=== PATIENT | male | born 1975 | race Caucasian/White ===

== ENCOUNTER 2018-01-28 17:56 | Inpatient (IN) | payer OTHER ==
[2018-01-28] MEDS: morphine 4 MG/ML VIAL IV (19:10)
[2018-01-28] MEDS: SOD CHLORIDE 0.9% 1,000 ML IV (19:10)
[2018-01-28 19:20] LABS: ADD MAN DIFF? NO
[2018-01-28 19:26] LABS: BASOPHIL # 0.1 10^3/ul (0.0-0.1); BASOPHILS % 1.2 % (0.0-2.0); EOSINOPHILS # 0.3 10^3/ul (0.0-0.5); EOSINOPHILS % 4.3 % (0.0-7.0); HEMATOCRIT 44.7 % (42.0-52.0); HEMOGLOBIN 15.6 g/dl (14.0-18.0); LYMPHOCYTES # 0.8 10^3/ul (0.8-2.9); LYMPHOCYTES % 12.4 % (15.0-51.0); MEAN CORPUSCULAR HEMOGLOBIN 38.5 pg (29.0-33.0); MEAN CORPUSCULAR HGB CONC 34.9 g/dl (32.0-37.0); MEAN CORPUSCULAR VOLUME 110.4 fl (82.0-101.0); MEAN PLATELET VOLUME 10.1 fl (7.4-10.4); MONOCYTE # 0.7 10^3/ul (0.3-0.9); MONOCYTES % 10.7 % (0.0-11.0); NEUTROPHIL # 4.5 10^3/ul (1.6-7.5); PLATELET COUNT 352 10^3/UL (140-415); RED BLOOD COUNT 4.05 10^6/ul (4.70-6.10); RED CELL DISTRIBUTION WIDTH 13.8 % (11.5-14.5)
[2018-01-28 19:26] LABS: WHITE BLOOD COUNT 6.5 10^3/ul (4.8-10.8)
[2018-01-28 19:41] LABS: INR 0.92; PROTIME 12.4 Sec (11.9-14.9)
[2018-01-28 19:42] LABS: PARTIAL THROMBOPLASTIN TIME 34.1 Sec (25.0-35.0)
[2018-01-28 19:46] LABS: ANION GAP 17 (8-16); BLOOD UREA NITROGEN 5 mg/dl (7-20); CALCIUM 9.1 mg/dl (8.4-10.2); CARBON DIOXIDE 24 mmol/L (21-31); CHLORIDE 101 mmol/L (97-110); CREATININE 0.68 mg/dl (0.61-1.24); GLUCOSE 100 mg/dl (70-220); POTASSIUM 3.9 mmol/L (3.5-5.1); SODIUM 138 mmol/L (135-144)
[2018-01-28] MEDS: HYDROmorphONE 2 MG/ML SYG IV (19:57)
[2018-01-28] MEDS ORDERED: ONDANSETRON 4 MG INJ IV (20:30)
[2018-01-28] MEDS ORDERED: ACETAMINOPHEN 325 MG TAB PO (20:30)
[2018-01-28] MEDS ORDERED: BISACODYL (EC) 5 MG TAB PO (20:30)
[2018-01-28] MEDS ORDERED: DOCUSATE SODIUM 100 MG CAP PO (20:30)
[2018-01-28] MEDS ORDERED: NACL 0.9% 3 ML SYG IV (20:30)
[2018-01-28] MEDS: METOPROLOL 25 MG TAB PO (21:21)
[2018-01-28] MEDS: AMITRIPTYLINE 50 MG TAB PO (21:48)
[2018-01-28] MEDS: morphine 2 MG INJ IV (22:38)
[2018-01-29] MEDS: ENOXAPARIN 100 MG/ML SYG SC (03:40)
[2018-01-29 05:47] LABS: ADD MAN DIFF? NO
[2018-01-29 05:56] LABS: WHITE BLOOD COUNT 6.6 10^3/ul (4.8-10.8)
[2018-01-29 05:56] LABS: BASOPHIL # 0.1 10^3/ul (0.0-0.1); BASOPHILS % 0.8 % (0.0-2.0); EOSINOPHILS # 0.3 10^3/ul (0.0-0.5); EOSINOPHILS % 3.8 % (0.0-7.0); HEMATOCRIT 42.7 % (42.0-52.0); HEMOGLOBIN 14.6 g/dl (14.0-18.0); LYMPHOCYTES # 0.7 10^3/ul (0.8-2.9); MEAN CORPUSCULAR HEMOGLOBIN 37.8 pg (29.0-33.0); MEAN CORPUSCULAR HGB CONC 34.2 g/dl (32.0-37.0); MEAN CORPUSCULAR VOLUME 110.6 fl (82.0-101.0); MEAN PLATELET VOLUME 10.5 fl (7.4-10.4); MONOCYTE # 0.8 10^3/ul (0.3-0.9); NEUTROPHIL # 4.8 10^3/ul (1.6-7.5); NEUTROPHILS % 72.2 % (39.0-77.0); PLATELET COUNT 297 10^3/UL (140-415); RED BLOOD COUNT 3.86 10^6/ul (4.70-6.10)
[2018-01-29 06:26] LABS: ALANINE AMINOTRANSFERASE 157 IU/L (13-69); ALBUMIN 3.3 g/dl (3.3-4.9); ALBUMIN/GLOBULIN RATIO 0.94; ALKALINE PHOSPHATASE 193 IU/L (42-121); ANION GAP 12 (8-16); ASPARTATE AMINO TRANSFERASE 165 IU/L (15-46); BILIRUBIN,INDIRECT 1.3 mg/dl (0-1.1); BILIRUBIN,TOTAL 1.3 mg/dl (0.2-1.3); BLOOD UREA NITROGEN 4 mg/dl (7-20); CALCIUM 8.7 mg/dl (8.4-10.2); CARBON DIOXIDE 28 mmol/L (21-31); CHLORIDE 103 mmol/L (97-110); CHOL/HDL RATIO 2.9 RATIO; CHOLESTEROL 227 mg/dl (100-200); CREATININE 0.77 mg/dl (0.61-1.24); GLUCOSE 97 mg/dl (70-220); HDL CHOLESTEROL 76 mg/dl (27-67); LDL CHOLESTEROL,CALCULATED 134 mg/dl; MAGNESIUM 1.5 mg/dl (1.7-2.5); POTASSIUM 4.5 mmol/L (3.5-5.1); SODIUM 138 mmol/L (135-144); TOTAL PROTEIN 6.8 g/dl (6.1-8.1); TRIGLYCERIDES 84 mg/dl (0-149)
[2018-01-29] MEDS: morphine 2 MG INJ IV ×4 (07:29→23:48)
[2018-01-29 07:47] LABS: FOLATE 2.8 ng/ml (2.8-20.0)
[2018-01-29 08:07] LABS: HEMOGLOBIN A1C 5.7 % (0-5.9)
[2018-01-29] MEDS: METOPROLOL 25 MG TAB PO ×2 (08:35→20:37)
[2018-01-29] MEDS: SOD CHLORIDE 0.9% 1,000 ML IV ×2 (09:11)
[2018-01-29] MEDS: MAGNESIUM SULFATE 1 GM/D5W 100 ML IVPB (15:00)
[2018-01-29] MEDS ORDERED: HEPARIN 1000 UNITS/NS (A-LINE) 1,000 ML (15:43)
[2018-01-29] MEDS ORDERED: IODIXANOL LOCM 100 ML BTL ×3 (15:43→17:36)
[2018-01-29] MEDS ORDERED: LIDOCAINE 1% (MDV) 20 ML INJ ×2 (15:43→17:37)
[2018-01-29] MEDS ORDERED: MIDAZOLAM 1 MG/ML 2 ML INJ ×3 (15:45→17:40)
[2018-01-29] MEDS ORDERED: FENTAnyl 50 MCG/ML VIAL ×3 (15:45→17:40)
[2018-01-29] MEDS: ALTEPLASE 10 MG in NS 100 ML CATHETER (16:30)
[2018-01-29] MEDS ORDERED: HEPARIN 1000 UNITS/ML 10 ML INJ (16:37)
[2018-01-29] MEDS ORDERED: HEPARIN 1000 UNITS/ML 10 ML INJ IV ×2 (19:00→20:00)
[2018-01-29] MEDS ORDERED: 1/2 NS + KCL 20 MEQ 1,000 ML IV (19:00)
[2018-01-29] MEDS: HYDROmorphONE 0.5 MG/0.5 ML SYG IV (20:15)
[2018-01-29 20:25] LABS: ADD MAN DIFF? NO
[2018-01-29 20:28] LABS: ABNORMAL IP MESSAGE 1; BASOPHIL # 0.1 10^3/ul (0.0-0.1); BASOPHILS % 0.7 % (0.0-2.0); EOSINOPHILS # 0.2 10^3/ul (0.0-0.5); EOSINOPHILS % 2.1 % (0.0-7.0); HEMATOCRIT 44.3 % (42.0-52.0); LYMPHOCYTES # 0.6 10^3/ul (0.8-2.9); LYMPHOCYTES % 7.9 % (15.0-51.0); MEAN CORPUSCULAR HEMOGLOBIN 37.8 pg (29.0-33.0); MEAN CORPUSCULAR HGB CONC 33.9 g/dl (32.0-37.0); MEAN CORPUSCULAR VOLUME 111.6 fl (82.0-101.0); MEAN PLATELET VOLUME 10.1 fl (7.4-10.4); MONOCYTE # 0.7 10^3/ul (0.3-0.9); MONOCYTES % 9.1 % (0.0-11.0); NEUTROPHIL # 5.9 10^3/ul (1.6-7.5); NEUTROPHILS % 79.1 % (39.0-77.0); PLATELET COUNT 255 10^3/UL (140-415); POSITIVE DIFF @See below; RED BLOOD COUNT 3.97 10^6/ul (4.70-6.10)
[2018-01-29 20:28] LABS: WHITE BLOOD COUNT 7.5 10^3/ul (4.8-10.8)
[2018-01-29] MEDS: HEPARIN 25000 UNITS/D5W 250 ML (VPH) IV (20:34)
[2018-01-29 20:46] LABS: ANION GAP 11 (8-16); BLOOD UREA NITROGEN 5 mg/dl (7-20); CALCIUM 8.9 mg/dl (8.4-10.2); CARBON DIOXIDE 27 mmol/L (21-31); CHLORIDE 102 mmol/L (97-110); CREATININE 0.73 mg/dl (0.61-1.24); GLUCOSE 98 mg/dl (70-220); SODIUM 136 mmol/L (135-144)
[2018-01-29] MEDS: AMITRIPTYLINE 50 MG TAB PO (21:41)
[2018-01-29] MEDS: hydrALAzine 20 MG INJ IV (22:09)
[2018-01-29] MEDS: 1/2 NS + KCL 20 MEQ 1,000 ML IV (22:15)
[2018-01-30] MEDS: HYDROmorphONE 0.5 MG/0.5 ML SYG IV ×6 (00:15→23:49)
[2018-01-30] MEDS: morphine 2 MG INJ IV ×5 (03:46→21:32)
[2018-01-30 04:43] LABS: ADD MAN DIFF? NO
[2018-01-30 05:05] LABS: PARTIAL THROMBOPLASTIN TIME 53.2 Sec (25.0-35.0)
[2018-01-30 05:30] LABS: ALANINE AMINOTRANSFERASE 135 IU/L (13-69); ALBUMIN 3.1 g/dl (3.3-4.9); ALBUMIN/GLOBULIN RATIO 0.96; ALKALINE PHOSPHATASE 174 IU/L (42-121); ANION GAP 11 (8-16); ASPARTATE AMINO TRANSFERASE 145 IU/L (15-46); BILIRUBIN,INDIRECT 2.1 mg/dl (0-1.1); BILIRUBIN,TOTAL 2.1 mg/dl (0.2-1.3); BLOOD UREA NITROGEN 7 mg/dl (7-20); CARBON DIOXIDE 25 mmol/L (21-31); CHLORIDE 100 mmol/L (97-110); CREATININE 0.72 mg/dl (0.61-1.24); GLUCOSE 108 mg/dl (70-220); MAGNESIUM 1.3 mg/dl (1.7-2.5); POTASSIUM 4.2 mmol/L (3.5-5.1); SODIUM 132 mmol/L (135-144); TOTAL PROTEIN 6.3 g/dl (6.1-8.1)
[2018-01-30] MEDS: HEPARIN 1000 UNITS/ML 10 ML INJ IV (05:33)
[2018-01-30 05:56] LABS: HEPATITIS B SURFACE ANTIGEN NEGATIVE (NEGATIVE)
[2018-01-30] MEDS: 1/2 NS + KCL 20 MEQ 1,000 ML IV ×2 (06:07→16:39)
[2018-01-30 06:09] LABS: ABNORMAL IP MESSAGE 1; BASOPHIL # 0.1 10^3/ul (0.0-0.1); BASOPHILS % 0.6 % (0.0-2.0); EOSINOPHILS # 0.1 10^3/ul (0.0-0.5); EOSINOPHILS % 1.5 % (0.0-7.0); HEMATOCRIT 40.6 % (42.0-52.0); HEMOGLOBIN 14.1 g/dl (14.0-18.0); LYMPHOCYTES # 0.6 10^3/ul (0.8-2.9); LYMPHOCYTES % 6.2 % (15.0-51.0); MEAN CORPUSCULAR HEMOGLOBIN 38.7 pg (29.0-33.0); MEAN CORPUSCULAR HGB CONC 34.7 g/dl (32.0-37.0); MEAN CORPUSCULAR VOLUME 111.5 fl (82.0-101.0); MEAN PLATELET VOLUME 10.6 fl (7.4-10.4); MONOCYTE # 0.8 10^3/ul (0.3-0.9); MONOCYTES % 8.6 % (0.0-11.0); NEUTROPHIL # 7.8 10^3/ul (1.6-7.5); NEUTROPHILS % 81.7 % (39.0-77.0); PLATELET COUNT 240 10^3/UL (140-415); POSITIVE DIFF @See below; RED BLOOD COUNT 3.64 10^6/ul (4.70-6.10)
[2018-01-30 06:09] LABS: WHITE BLOOD COUNT 9.6 10^3/ul (4.8-10.8)
[2018-01-30 06:14] LABS: HEPATITIS B CORE ANTIBODY NEGATIVE (NEGATIVE); HEPATITIS C VIRAL ANTIBODY NEGATIVE (NEGATIVE)
[2018-01-30 07:02] LABS: HEPATITIS B SURFACE ANTIBODY NEGATIVE (NEGATIVE)
[2018-01-30] MEDS: METOPROLOL 25 MG TAB PO ×2 (08:08→21:24)
[2018-01-30] MEDS: HEPARIN 25000 UNITS/D5W 250 ML (VPH) IV ×2 (08:38→21:19)
[2018-01-30] MEDS: CYANOCOBALAMIN 500 MCG TAB PO (09:11)
[2018-01-30] MEDS: FOLIC ACID 1 MG TAB PO (09:11)
[2018-01-30] MEDS: CYANOCOBALAMIN 1000 MCG INJ IM (09:13)
[2018-01-30] MEDS: MAGNESIUM SULFATE 4 GM/100 ML 100 ML IVPB (10:04)
[2018-01-30 12:58] LABS: PARTIAL THROMBOPLASTIN TIME 117.3 Sec (25.0-35.0)
[2018-01-30] MEDS: hydrALAzine 20 MG INJ IV (19:56)
[2018-01-30] MEDS: AMITRIPTYLINE 50 MG TAB PO (21:25)
[2018-01-31] MEDS: morphine 2 MG INJ IV ×4 (01:27→18:03)
[2018-01-31] MEDS: 1/2 NS + KCL 20 MEQ 1,000 ML IV ×3 (01:32→23:17)
[2018-01-31] MEDS: HYDROmorphONE 0.5 MG/0.5 ML SYG IV ×6 (03:50→23:33)
[2018-01-31 04:17] LABS: ADD MAN DIFF? NO
[2018-01-31 04:19] LABS: WHITE BLOOD COUNT 7.7 10^3/ul (4.8-10.8)
[2018-01-31 04:19] LABS: BASOPHIL # 0.1 10^3/ul (0.0-0.1); BASOPHILS % 0.9 % (0.0-2.0); EOSINOPHILS # 0.3 10^3/ul (0.0-0.5); EOSINOPHILS % 3.4 % (0.0-7.0); HEMATOCRIT 40.6 % (42.0-52.0); LYMPHOCYTES # 0.7 10^3/ul (0.8-2.9); LYMPHOCYTES % 8.5 % (15.0-51.0); MEAN CORPUSCULAR HGB CONC 34.5 g/dl (32.0-37.0); MEAN CORPUSCULAR VOLUME 110.3 fl (82.0-101.0); MEAN PLATELET VOLUME 10.3 fl (7.4-10.4); MONOCYTE # 0.6 10^3/ul (0.3-0.9); MONOCYTES % 7.8 % (0.0-11.0); NEUTROPHIL # 5.9 10^3/ul (1.6-7.5); NEUTROPHILS % 77.1 % (39.0-77.0); PLATELET COUNT 224 10^3/UL (140-415); RED BLOOD COUNT 3.68 10^6/ul (4.70-6.10)
[2018-01-31 04:47] LABS: ALANINE AMINOTRANSFERASE 211 IU/L (13-69); ALBUMIN 3.5 g/dl (3.3-4.9); ALKALINE PHOSPHATASE 211 IU/L (42-121); ANION GAP 12 (8-16); ASPARTATE AMINO TRANSFERASE 266 IU/L (15-46); BILIRUBIN,INDIRECT 1.5 mg/dl (0-1.1); BILIRUBIN,TOTAL 1.5 mg/dl (0.2-1.3); BLOOD UREA NITROGEN 7 mg/dl (7-20); CALCIUM 8.9 mg/dl (8.4-10.2); CARBON DIOXIDE 25 mmol/L (21-31); CHLORIDE 103 mmol/L (97-110); CREATININE 0.76 mg/dl (0.61-1.24); GLUCOSE 101 mg/dl (70-220); POTASSIUM 4.4 mmol/L (3.5-5.1); SODIUM 136 mmol/L (135-144)
[2018-01-31] MEDS: CYANOCOBALAMIN 500 MCG TAB PO (09:29)
[2018-01-31] MEDS: METOPROLOL 25 MG TAB PO ×2 (09:29→21:15)
[2018-01-31] MEDS: FOLIC ACID 1 MG TAB PO (09:29)
[2018-01-31] MEDS: AMITRIPTYLINE 50 MG TAB PO (21:10)
[2018-01-31] MEDS: HEPARIN 25000 UNITS/D5W 250 ML (VPH) IV (21:21)
[2018-02-01] MEDS: HYDROCODONE/APAP (5/325) TAB PO ×3 (01:31→22:10)
[2018-02-01 05:47] LABS: ADD MAN DIFF? NO; BASOPHIL # 0.1 10^3/ul (0.0-0.1); EOSINOPHILS # 0.4 10^3/ul (0.0-0.5); HEMATOCRIT 40.7 % (42.0-52.0); LYMPHOCYTES # 0.7 10^3/ul (0.8-2.9); LYMPHOCYTES % 8.4 % (15.0-51.0); MEAN CORPUSCULAR HEMOGLOBIN 38.4 pg (29.0-33.0); MEAN CORPUSCULAR HGB CONC 34.4 g/dl (32.0-37.0); MEAN CORPUSCULAR VOLUME 111.5 fl (82.0-101.0); MEAN PLATELET VOLUME 10.7 fl (7.4-10.4); MONOCYTE # 0.9 10^3/ul (0.3-0.9); MONOCYTES % 10.8 % (0.0-11.0); NEUTROPHIL # 5.7 10^3/ul (1.6-7.5); NEUTROPHILS % 69.9 % (39.0-77.0); PLATELET COUNT 223 10^3/UL (140-415); RED BLOOD COUNT 3.65 10^6/ul (4.70-6.10); RED CELL DISTRIBUTION WIDTH 13.8 % (11.5-14.5)
[2018-02-01 05:47] LABS: WHITE BLOOD COUNT 8.1 10^3/ul (4.8-10.8)
[2018-02-01 07:01] LABS: PARTIAL THROMBOPLASTIN TIME 70.2 Sec (25.0-35.0)
[2018-02-01] MEDS: 1/2 NS + KCL 20 MEQ 1,000 ML IV (07:46)
[2018-02-01] MEDS: CYANOCOBALAMIN 500 MCG TAB PO (09:24)
[2018-02-01] MEDS: FOLIC ACID 1 MG TAB PO (09:24)
[2018-02-01] MEDS: METOPROLOL 25 MG TAB PO (09:25)
[2018-02-01] MEDS: HEPARIN 25000 UNITS/D5W 250 ML (VPH) IV (09:33)
[2018-02-01] MEDS: HYDROmorphONE 0.5 MG/0.5 ML SYG IV (10:48)
[2018-02-01] MEDS: METOPROLOL 50 MG TAB PO (21:06)
[2018-02-01] MEDS: ENOXAPARIN 100 MG/ML SYG SC (21:08)
[2018-02-01] MEDS: AMITRIPTYLINE 50 MG TAB PO (21:23)
[2018-02-02] MEDS: METOPROLOL 50 MG TAB PO (08:49)
[2018-02-02] MEDS: CYANOCOBALAMIN 500 MCG TAB PO (08:49)
[2018-02-02] MEDS: FOLIC ACID 1 MG TAB PO (08:50)
[2018-02-02] MEDS: ENOXAPARIN 100 MG/ML SYG SC (09:22)
== END 2018-02-02 12:30 | disposition home or self-care (01) | DRG 271 ==
LOC: 6WM 01-30 17:13 → E/R 17:56 → ICU 01-29 19:21 → MS1 19:26
PROC: 06CG3ZZ Extirpation of Matter from Left External Iliac Vein, Percutaneous Approach (ICD-10-PCS; principal; 2018-01-29 15:00)
PROC: 067G3ZZ Dilation of Left External Iliac Vein, Percutaneous Approach (ICD-10-PCS; 2018-01-29 15:00)
PROC: 067N3ZZ Dilation of Left Femoral Vein, Percutaneous Approach (ICD-10-PCS; 2018-01-29 15:00)
PROC: 067Y3ZZ Dilation of Lower Vein, Percutaneous Approach (ICD-10-PCS; 2018-01-29 15:00)
PROC: 06CN3ZZ Extirpation of Matter from Left Femoral Vein, Percutaneous Approach (ICD-10-PCS; 2018-01-29 15:00)
PROC: 06CY3ZZ Extirpation of Matter from Lower Vein, Percutaneous Approach (ICD-10-PCS; 2018-01-29 15:00)
PROC: 06H03DZ Insertion of Intraluminal Device into Inferior Vena Cava, Percutaneous Approach (ICD-10-PCS; 2018-01-29 15:00)
PROC: 3E03317 Introduction of Other Thrombolytic into Peripheral Vein, Percutaneous Approach (ICD-10-PCS; 2018-01-29 15:00)
DX: I82.422 Acute embolism and thrombosis of left iliac vein (principal); D68.59 Other primary thrombophilia; E72.12 Methylenetetrahydrofolate reductase deficiency; I82.432 Acute embolism and thrombosis of left popliteal vein; I82.412 Acute embolism and thrombosis of left femoral vein; I82.522 Chronic embolism and thrombosis of left iliac vein; I82.512 Chronic embolism and thrombosis of left femoral vein; I82.532 Chronic embolism and thrombosis of left popliteal vein; E83.42 Hypomagnesemia; D75.89 Other specified diseases of blood and blood-forming organs; I10 Essential (primary) hypertension; E78.5 Hyperlipidemia, unspecified; E80.6 Other disorders of bilirubin metabolism; F17.200 Nicotine dependence, unspecified, uncomplicated; F32.9 Major depressive disorder, single episode, unspecified; R74.0 Nonspecific elevation of levels of transaminase and lactic acid dehydrogenase [LDH]; E66.3 Overweight; Z68.29 Body mass index [BMI] 29.0-29.9, adult; Z86.711 Personal history of pulmonary embolism; Z95.820 Peripheral vascular angioplasty status with implants and grafts; Z79.02 Long term (current) use of antithrombotics/antiplatelets
CPT/HCPCS: 36415; 71045; 75940; 76705; 80048; 80053; 80061; 82607; 82746; 83036; 83735; 84443; 85025; 85610; 85730; 86704; 86706; 86803; 87081; 87340; 93005; 96374; 99285-25

== ENCOUNTER 2018-03-21 23:49 | Inpatient (IN) | payer OTHER ==
[2018-03-22] MEDS: ONDANSETRON 4 MG INJ IV (00:45)
[2018-03-22] MEDS: morphine 4 MG/ML VIAL IV (00:45)
[2018-03-22 00:57] LABS: ADD MAN DIFF? NO
[2018-03-22 01:02] LABS: WHITE BLOOD COUNT 6.7 10^3/ul (4.8-10.8)
[2018-03-22 01:02] LABS: BASOPHIL # 0.1 10^3/ul (0.0-0.1); BASOPHILS % 1.2 % (0.0-2.0); EOSINOPHILS # 0.2 10^3/ul (0.0-0.5); EOSINOPHILS % 2.7 % (0.0-7.0); HEMATOCRIT 44.1 % (42.0-52.0); HEMOGLOBIN 15.3 g/dl (14.0-18.0); LYMPHOCYTES % 14.5 % (15.0-51.0); MEAN CORPUSCULAR HGB CONC 34.7 g/dl (32.0-37.0); MEAN CORPUSCULAR VOLUME 106.5 fl (82.0-101.0); MONOCYTE # 0.7 10^3/ul (0.3-0.9); MONOCYTES % 11.1 % (0.0-11.0); NEUTROPHIL # 4.5 10^3/ul (1.6-7.5); NEUTROPHILS % 66.5 % (39.0-77.0); PLATELET COUNT 287 10^3/UL (140-415); RED BLOOD COUNT 4.14 10^6/ul (4.70-6.10); RED CELL DISTRIBUTION WIDTH 15.2 % (11.5-14.5)
[2018-03-22 01:17] LABS: INR 0.84; PROTIME 11.6 Sec (11.9-14.9); PT RATIO 0.9
[2018-03-22 01:18] LABS: PARTIAL THROMBOPLASTIN TIME 28.5 Sec (23.0-35.0)
[2018-03-22 01:25] LABS: ALANINE AMINOTRANSFERASE 253 IU/L (13-69); ALBUMIN 3.6 g/dl (3.3-4.9); ALBUMIN/GLOBULIN RATIO 0.92; ALKALINE PHOSPHATASE 243 IU/L (42-121); ANION GAP 16 (5-13); ASPARTATE AMINO TRANSFERASE 368 IU/L (15-46); BILIRUBIN,INDIRECT 0.4 mg/dl (0-1.1); BILIRUBIN,TOTAL 0.4 mg/dl (0.2-1.3); BLOOD UREA NITROGEN 4 mg/dl (7-20); CARBON DIOXIDE 23 mmol/L (21-31); CHLORIDE 101 mmol/L (97-110); CREATININE 0.67 mg/dl (0.61-1.24); Estimated GFR > 60 mL/min (>60); GLUCOSE 114 mg/dl (70-220); LIPASE 296 U/L (23-300); POTASSIUM 4.2 mmol/L (3.5-5.1); SODIUM 140 mmol/L (135-144); TOTAL PROTEIN 7.5 g/dl (6.1-8.1)
[2018-03-22] MEDS: HYDROCODONE/APAP (5/325) TAB PO (04:06)
[2018-03-22] MEDS ORDERED: HYDROCODONE/APAP (5/325) TAB PO (05:00)
[2018-03-22] MEDS ORDERED: ALBUTEROL/IPRATROPIUM (NEB) 3 ML AMP HHN (05:00)
[2018-03-22] MEDS ORDERED: ACETAMINOPHEN 325 MG TAB PO (05:00)
[2018-03-22] MEDS ORDERED: NACL 0.9% 3 ML SYG IV (05:00)
[2018-03-22] MEDS: DEXTROSE 5%-0.45% NACL 1,000 ML IV ×2 (05:37→18:20)
[2018-03-22] MEDS ORDERED: GELATIN SIZE 100 SPONGE (18:28)
[2018-03-22] MEDS ORDERED: TOBRAMYCIN 0.3% 3.5 GM OPH OINT (18:29)
[2018-03-22] MEDS ORDERED: TOBRAMYCIN 1.2 GM POWDER (18:30)
[2018-03-22] MEDS ORDERED: IOHEXOL 300MG/ML 30 ML BTL (19:24)
[2018-03-22] MEDS ORDERED: MIDAZOLAM 1 MG/ML 2 ML INJ (19:36)
[2018-03-22] MEDS ORDERED: PHENYLephrine (100 MCG/ML) 5ML SYG (19:47)
[2018-03-22] MEDS: HEPARIN 1000 UNITS/ML 10 ML INJ (20:21)
[2018-03-22] MEDS: THROMBIN 5000 UNIT VIAL ×2 (20:22→20:23)
[2018-03-22] MEDS ORDERED: HEPARIN 1000 UNITS/ML 10 ML INJ (21:18)
[2018-03-22] MEDS ORDERED: HYDROmorphONE 2 MG/ML SYG (21:42)
[2018-03-22] MEDS ORDERED: CEFAZOLIN 1 GM INJ (22:41)
[2018-03-22] MEDS ORDERED: ROCURONIUM 50 MG INJ (22:41)
[2018-03-22] MEDS ORDERED: LIDOCAINE 2% (SDV) 5 ML INJ (22:41)
[2018-03-22] MEDS ORDERED: ETOMIDATE 20 MG INJ (22:41)
[2018-03-22] MEDS ORDERED: ONDANSETRON 4 MG INJ (22:42)
[2018-03-22] MEDS ORDERED: morphine (1 MG/ML) 10ML SYRINGE IV (23:00)
[2018-03-22] MEDS ORDERED: DIPHENHYDRAMINE 50 MG INJ IV (23:00)
[2018-03-22] MEDS ORDERED: LORAZEPAM 2 MG INJ IV (23:00)
[2018-03-22] MEDS ORDERED: MEPERIDINE 25 MG INJ IV (23:00)
[2018-03-22] MEDS ORDERED: ONDANSETRON 4 MG INJ IV (23:00)
[2018-03-22] MEDS ORDERED: hydrALAzine 20 MG INJ (23:21)
[2018-03-22] MEDS ORDERED: HEPARIN 5,000 UNIT/0.5 ML VIAL SC (23:30)
[2018-03-22 23:37] LABS: ADD MAN DIFF? NO
[2018-03-22 23:39] LABS: WHITE BLOOD COUNT 6.8 10^3/ul (4.8-10.8)
[2018-03-22 23:39] LABS: BASOPHIL # 0.1 10^3/ul (0.0-0.1); BASOPHILS % 0.7 % (0.0-2.0); EOSINOPHILS # 0.1 10^3/ul (0.0-0.5); EOSINOPHILS % 1.6 % (0.0-7.0); HEMATOCRIT 40.7 % (42.0-52.0); LYMPHOCYTES # 0.6 10^3/ul (0.8-2.9); LYMPHOCYTES % 9.4 % (15.0-51.0); MEAN CORPUSCULAR HEMOGLOBIN 36.9 pg (29.0-33.0); MEAN CORPUSCULAR HGB CONC 34.4 g/dl (32.0-37.0); MEAN CORPUSCULAR VOLUME 107.4 fl (82.0-101.0); MEAN PLATELET VOLUME 9.6 fl (7.4-10.4); MONOCYTE # 0.7 10^3/ul (0.3-0.9); MONOCYTES % 9.5 % (0.0-11.0); NEUTROPHIL # 5.2 10^3/ul (1.6-7.5); NEUTROPHILS % 76.5 % (39.0-77.0); PLATELET COUNT 258 10^3/UL (140-415); RED BLOOD COUNT 3.79 10^6/ul (4.70-6.10); RED CELL DISTRIBUTION WIDTH 14.9 % (11.5-14.5)
[2018-03-22] MEDS: CLOPIDOGREL 75 MG TAB PO (23:43)
[2018-03-22] MEDS: morphine 2 MG INJ IV (23:44)
[2018-03-22] MEDS: hydrALAzine 20 MG INJ IV (23:45)
[2018-03-22] MEDS ORDERED: HEPARIN 5,000 UNIT/0.5 ML VIAL (23:49)
[2018-03-23] MEDS: HEPARIN SODIUM 5,000 UNIT/ML VIAL IV (00:13)
[2018-03-23] MEDS: HEPARIN 25000 UNITS/250 ML 250 ML IV ×3 (00:23→15:11)
[2018-03-23] MEDS: morphine 2 MG INJ IV ×6 (00:25→19:42)
[2018-03-23] MEDS: LABETALOL HCL 20MG INJ IV ×2 (01:13→01:34)
[2018-03-23] MEDS: DEXTROSE 5%-0.45% NACL 1,000 ML IV ×3 (01:27→21:08)
[2018-03-23] MEDS: HYDROCODONE/APAP (5/325) TAB PO ×6 (01:28→22:40)
[2018-03-23 05:03] LABS: ADD MAN DIFF? NO
[2018-03-23 05:04] LABS: HEMOGLOBIN 13.5 g/dl (14.0-18.0); MEAN CORPUSCULAR HEMOGLOBIN 37.5 pg (29.0-33.0); MEAN CORPUSCULAR VOLUME 108.3 fl (82.0-101.0)
[2018-03-23 05:04] LABS: WHITE BLOOD COUNT 9.9 10^3/ul (4.8-10.8)
[2018-03-23 05:05] LABS: ABNORMAL IP MESSAGE 1; BASOPHIL # 0.1 10^3/ul (0.0-0.1); BASOPHILS % 0.5 % (0.0-2.0); EOSINOPHILS # 0.2 10^3/ul (0.0-0.5); EOSINOPHILS % 1.6 % (0.0-7.0); LYMPHOCYTES # 0.5 10^3/ul (0.8-2.9); LYMPHOCYTES % 4.7 % (15.0-51.0); MEAN CORPUSCULAR HGB CONC 34.6 g/dl (32.0-37.0); MEAN PLATELET VOLUME 9.5 fl (7.4-10.4); MONOCYTE # 0.9 10^3/ul (0.3-0.9); MONOCYTES % 9.1 % (0.0-11.0); NEUTROPHIL # 8.2 10^3/ul (1.6-7.5); NEUTROPHILS % 82.9 % (39.0-77.0); PLATELET COUNT 245 10^3/UL (140-415); POSITIVE DIFF @See below; RED CELL DISTRIBUTION WIDTH 15.2 % (11.5-14.5)
[2018-03-23 05:37] LABS: PARTIAL THROMBOPLASTIN TIME 70.2 Sec (23.0-35.0)
[2018-03-23 05:38] LABS: ALANINE AMINOTRANSFERASE 213 IU/L (13-69); ALBUMIN 3.2 g/dl (3.3-4.9); ALBUMIN/GLOBULIN RATIO 1.03; ALKALINE PHOSPHATASE 178 IU/L (42-121); ANION GAP 7 (5-13); ASPARTATE AMINO TRANSFERASE 198 IU/L (15-46); BLOOD UREA NITROGEN 3 mg/dl (7-20); CALCIUM 8.1 mg/dl (8.4-10.2); CARBON DIOXIDE 25 mmol/L (21-31); CHLORIDE 102 mmol/L (97-110); CREATININE 0.55 mg/dl (0.61-1.24); Estimated GFR > 60 mL/min (>60); GLUCOSE 136 mg/dl (70-220); MAGNESIUM 1.4 mg/dl (1.7-2.5); PHOSPHORUS 4.1 mg/dl (2.5-4.9); POTASSIUM 3.4 mmol/L (3.5-5.1); SODIUM 134 mmol/L (135-144); TOTAL PROTEIN 6.3 g/dl (6.1-8.1)
[2018-03-23] MEDS: MAGNESIUM OXIDE 400 MG TAB PO (09:33)
[2018-03-23] MEDS: POTASSIUM CHLORIDE (SR) 20 MEQ TAB PO (09:33)
[2018-03-23] MEDS ORDERED: HEPARIN 1000 UNITS/ML 10 ML INJ IV ×2 (11:30)
[2018-03-23 12:47] LABS: PARTIAL THROMBOPLASTIN TIME 61.5 Sec (23.0-35.0)
[2018-03-23 18:22] LABS: PARTIAL THROMBOPLASTIN TIME 58.9 Sec (23.0-35.0)
[2018-03-23 21:53] LABS: PARTIAL THROMBOPLASTIN TIME 72.8 Sec (23.0-35.0)
[2018-03-24] MEDS: morphine 2 MG INJ IV ×5 (01:43→22:05)
[2018-03-24] MEDS: HYDROCODONE/APAP (5/325) TAB PO ×5 (03:32→20:30)
[2018-03-24] MEDS: HEPARIN 25000 UNITS/250 ML 250 ML IV (03:36)
[2018-03-24 04:01] LABS: ADD MAN DIFF? NO
[2018-03-24 04:27] LABS: PARTIAL THROMBOPLASTIN TIME 69.1 Sec (23.0-35.0)
[2018-03-24 04:42] LABS: WHITE BLOOD COUNT 7.1 10^3/ul (4.8-10.8)
[2018-03-24 04:42] LABS: ABNORMAL IP MESSAGE 1; BASOPHIL # 0.1 10^3/ul (0.0-0.1); BASOPHILS % 0.7 % (0.0-2.0); EOSINOPHILS # 0.2 10^3/ul (0.0-0.5); HEMOGLOBIN 14.2 g/dl (14.0-18.0); LYMPHOCYTES # 0.6 10^3/ul (0.8-2.9); LYMPHOCYTES % 7.9 % (15.0-51.0); MEAN CORPUSCULAR HEMOGLOBIN 36.8 pg (29.0-33.0); MEAN CORPUSCULAR VOLUME 111.4 fl (82.0-101.0); MONOCYTE # 0.7 10^3/ul (0.3-0.9); NEUTROPHIL # 5.4 10^3/ul (1.6-7.5); NEUTROPHILS % 76.6 % (39.0-77.0); PLATELET COUNT 249 10^3/UL (140-415); POSITIVE DIFF @See below; RED BLOOD COUNT 3.86 10^6/ul (4.70-6.10); RED CELL DISTRIBUTION WIDTH 15.1 % (11.5-14.5)
[2018-03-24] MEDS: CLOPIDOGREL 75 MG TAB PO (08:44)
[2018-03-24 10:39] LABS: ALBUMIN 3.3 g/dl (3.3-4.9); ANION GAP 8 (5-13); BLOOD UREA NITROGEN 3 mg/dl (7-20); CALCIUM 8.7 mg/dl (8.4-10.2); CARBON DIOXIDE 25 mmol/L (21-31); CHLORIDE 100 mmol/L (97-110); CREATININE 0.64 mg/dl (0.61-1.24); GLUCOSE 108 mg/dl (70-220); MAGNESIUM 1.7 mg/dl (1.7-2.5); PHOSPHORUS 3.9 mg/dl (2.5-4.9); POTASSIUM 4.1 mmol/L (3.5-5.1); SODIUM 133 mmol/L (135-144)
[2018-03-24] MEDS: ENOXAPARIN 100 MG/ML SYG SC ×2 (13:20→20:33)
[2018-03-24] MEDS: MAGNESIUM OXIDE 400 MG TAB PO (15:09)
[2018-03-24] MEDS: POLYETHYLENE GLYCOL 17 GM PACKET PO (20:30)
[2018-03-25] MEDS: HYDROCODONE/APAP (5/325) TAB PO ×6 (00:25→21:36)
[2018-03-25] MEDS: morphine 2 MG INJ IV ×6 (02:06→22:36)
[2018-03-25 05:15] LABS: ADD MAN DIFF? NO
[2018-03-25 05:24] LABS: WHITE BLOOD COUNT 5.6 10^3/ul (4.8-10.8)
[2018-03-25 05:25] LABS: ABNORMAL IP MESSAGE 1; BASOPHIL # 0.1 10^3/ul (0.0-0.1); BASOPHILS % 1.1 % (0.0-2.0); EOSINOPHILS # 0.3 10^3/ul (0.0-0.5); EOSINOPHILS % 4.5 % (0.0-7.0); HEMATOCRIT 42.3 % (42.0-52.0); HEMOGLOBIN 14.3 g/dl (14.0-18.0); LYMPHOCYTES # 0.6 10^3/ul (0.8-2.9); MEAN CORPUSCULAR HGB CONC 33.8 g/dl (32.0-37.0); MEAN CORPUSCULAR VOLUME 109.6 fl (82.0-101.0); MONOCYTE # 0.8 10^3/ul (0.3-0.9); MONOCYTES % 13.9 % (0.0-11.0); NEUTROPHIL # 3.8 10^3/ul (1.6-7.5); NEUTROPHILS % 68.5 % (39.0-77.0); PLATELET COUNT 254 10^3/UL (140-415); POSITIVE DIFF @See below; RED BLOOD COUNT 3.86 10^6/ul (4.70-6.10); RED CELL DISTRIBUTION WIDTH 14.7 % (11.5-14.5)
[2018-03-25 05:42] LABS: PARTIAL THROMBOPLASTIN TIME 39.2 Sec (23.0-35.0)
[2018-03-25 05:55] LABS: ALANINE AMINOTRANSFERASE 159 IU/L (13-69); ALBUMIN 3.6 g/dl (3.3-4.9); ALBUMIN/GLOBULIN RATIO 1.09; ALKALINE PHOSPHATASE 250 IU/L (42-121); ANION GAP 9 (5-13); ASPARTATE AMINO TRANSFERASE 135 IU/L (15-46); BILIRUBIN,INDIRECT 0.9 mg/dl (0-1.1); BILIRUBIN,TOTAL 0.9 mg/dl (0.2-1.3); BLOOD UREA NITROGEN 5 mg/dl (7-20); CALCIUM 9.1 mg/dl (8.4-10.2); CARBON DIOXIDE 28 mmol/L (21-31); CHLORIDE 99 mmol/L (97-110); CREATININE 0.77 mg/dl (0.61-1.24); Estimated GFR > 60 mL/min (>60); GLUCOSE 100 mg/dl (70-220); POTASSIUM 4.9 mmol/L (3.5-5.1); SODIUM 136 mmol/L (135-144); TOTAL PROTEIN 6.9 g/dl (6.1-8.1)
[2018-03-25] MEDS: CLOPIDOGREL 75 MG TAB PO (08:29)
[2018-03-25] MEDS: ENOXAPARIN 100 MG/ML SYG SC ×2 (08:29→22:40)
[2018-03-25] MEDS: POLYETHYLENE GLYCOL 17 GM PACKET PO (08:30)
[2018-03-25] MEDS: hydrALAzine 20 MG INJ IV (10:16)
[2018-03-25] MEDS: METOPROLOL 50 MG TAB PO ×2 (11:16→21:37)
[2018-03-25] MEDS ORDERED: METOPROLOL 50 MG TAB PO (11:30)
[2018-03-26] MEDS: HYDROCODONE/APAP (5/325) TAB PO ×6 (01:51→23:11)
[2018-03-26] MEDS: morphine 2 MG INJ IV ×4 (02:43→21:15)
[2018-03-26 05:41] LABS: ADD MAN DIFF? NO
[2018-03-26 05:49] LABS: WHITE BLOOD COUNT 6.6 10^3/ul (4.8-10.8)
[2018-03-26 05:50] LABS: BASOPHIL # 0.1 10^3/ul (0.0-0.1); BASOPHILS % 0.9 % (0.0-2.0); EOSINOPHILS # 0.3 10^3/ul (0.0-0.5); EOSINOPHILS % 4.4 % (0.0-7.0); HEMATOCRIT 44.4 % (42.0-52.0); HEMOGLOBIN 15.4 g/dl (14.0-18.0); LYMPHOCYTES # 0.7 10^3/ul (0.8-2.9); LYMPHOCYTES % 9.9 % (15.0-51.0); MEAN CORPUSCULAR HEMOGLOBIN 36.8 pg (29.0-33.0); MEAN CORPUSCULAR HGB CONC 34.7 g/dl (32.0-37.0); MEAN CORPUSCULAR VOLUME 106.2 fl (82.0-101.0); MONOCYTE # 1.1 10^3/ul (0.3-0.9); NEUTROPHIL # 4.3 10^3/ul (1.6-7.5); NEUTROPHILS % 66.1 % (39.0-77.0); PLATELET COUNT 287 10^3/UL (140-415); RED BLOOD COUNT 4.18 10^6/ul (4.70-6.10); RED CELL DISTRIBUTION WIDTH 14.5 % (11.5-14.5)
[2018-03-26 06:22] LABS: ALANINE AMINOTRANSFERASE 142 IU/L (13-69); ALBUMIN 3.9 g/dl (3.3-4.9); ALBUMIN/GLOBULIN RATIO 1.02; ALKALINE PHOSPHATASE 293 IU/L (42-121); ANION GAP 10 (5-13); ASPARTATE AMINO TRANSFERASE 106 IU/L (15-46); BILIRUBIN,INDIRECT 0.8 mg/dl (0-1.1); BILIRUBIN,TOTAL 0.8 mg/dl (0.2-1.3); BLOOD UREA NITROGEN 6 mg/dl (7-20); CALCIUM 9.3 mg/dl (8.4-10.2); CARBON DIOXIDE 24 mmol/L (21-31); CHLORIDE 101 mmol/L (97-110); CREATININE 0.65 mg/dl (0.61-1.24); Estimated GFR > 60 mL/min (>60); GLUCOSE 103 mg/dl (70-220); POTASSIUM 4.1 mmol/L (3.5-5.1); SODIUM 135 mmol/L (135-144); TOTAL PROTEIN 7.7 g/dl (6.1-8.1)
[2018-03-26] MEDS: POLYETHYLENE GLYCOL 17 GM PACKET PO (08:28)
[2018-03-26] MEDS: FOLIC ACID 1 MG TAB PO (08:32)
[2018-03-26] MEDS: CYANOCOBALAMIN 500 MCG TAB PO (08:32)
[2018-03-26] MEDS: CLOPIDOGREL 75 MG TAB PO (08:32)
[2018-03-26] MEDS: METOPROLOL 50 MG TAB PO ×2 (08:32→20:41)
[2018-03-26] MEDS: ENOXAPARIN 100 MG/ML SYG SC ×2 (08:38→23:13)
[2018-03-27] MEDS: morphine 2 MG INJ IV ×5 (01:22→21:13)
[2018-03-27] MEDS: HYDROCODONE/APAP (5/325) TAB PO ×4 (03:02→18:54)
[2018-03-27 05:53] LABS: ADD MAN DIFF? NO
[2018-03-27 05:56] LABS: WHITE BLOOD COUNT 7.1 10^3/ul (4.8-10.8)
[2018-03-27 05:56] LABS: BASOPHIL # 0.1 10^3/ul (0.0-0.1); BASOPHILS % 1.1 % (0.0-2.0); EOSINOPHILS # 0.2 10^3/ul (0.0-0.5); EOSINOPHILS % 3.3 % (0.0-7.0); HEMATOCRIT 45.8 % (42.0-52.0); HEMOGLOBIN 15.8 g/dl (14.0-18.0); LYMPHOCYTES # 0.7 10^3/ul (0.8-2.9); LYMPHOCYTES % 9.9 % (15.0-51.0); MEAN CORPUSCULAR HEMOGLOBIN 36.6 pg (29.0-33.0); MEAN CORPUSCULAR HGB CONC 34.5 g/dl (32.0-37.0); MEAN PLATELET VOLUME 9.6 fl (7.4-10.4); MONOCYTE # 1.2 10^3/ul (0.3-0.9); MONOCYTES % 16.3 % (0.0-11.0); NEUTROPHIL # 4.8 10^3/ul (1.6-7.5); NEUTROPHILS % 67.1 % (39.0-77.0); PLATELET COUNT 314 10^3/UL (140-415); RED BLOOD COUNT 4.32 10^6/ul (4.70-6.10); RED CELL DISTRIBUTION WIDTH 14.4 % (11.5-14.5)
[2018-03-27 06:22] LABS: ALANINE AMINOTRANSFERASE 121 IU/L (13-69); ALBUMIN 3.9 g/dl (3.3-4.9); ALBUMIN/GLOBULIN RATIO 1.02; ALKALINE PHOSPHATASE 296 IU/L (42-121); ANION GAP 10 (5-13); ASPARTATE AMINO TRANSFERASE 92 IU/L (15-46); BLOOD UREA NITROGEN 9 mg/dl (7-20); CALCIUM 9.3 mg/dl (8.4-10.2); CARBON DIOXIDE 26 mmol/L (21-31); CHLORIDE 99 mmol/L (97-110); CREATININE 0.74 mg/dl (0.61-1.24); Estimated GFR > 60 mL/min (>60); GLUCOSE 109 mg/dl (70-220); MAGNESIUM 1.9 mg/dl (1.7-2.5); POTASSIUM 4.4 mmol/L (3.5-5.1); SODIUM 135 mmol/L (135-144); TOTAL PROTEIN 7.7 g/dl (6.1-8.1)
[2018-03-27] MEDS: METOPROLOL 50 MG TAB PO ×2 (08:42→21:04)
[2018-03-27] MEDS: CYANOCOBALAMIN 500 MCG TAB PO (08:42)
[2018-03-27] MEDS: FOLIC ACID 1 MG TAB PO (08:42)
[2018-03-27] MEDS: CLOPIDOGREL 75 MG TAB PO (08:42)
[2018-03-27] MEDS: POLYETHYLENE GLYCOL 17 GM PACKET PO (08:43)
[2018-03-27] MEDS: ENOXAPARIN 100 MG/ML SYG SC ×2 (08:52→21:06)
[2018-03-27] MEDS: METHYLPREDNISOLONE 40 MG INJ IV (18:53)
[2018-03-27] MEDS: ONDANSETRON 4 MG INJ IV (19:35)
[2018-03-27] MEDS: AMITRIPTYLINE 50 MG TAB PO (21:03)
[2018-03-28] MEDS: morphine 2 MG INJ IV ×2 (01:57→09:09)
[2018-03-28] MEDS: CYANOCOBALAMIN 500 MCG TAB PO (09:06)
[2018-03-28] MEDS: CLOPIDOGREL 75 MG TAB PO (09:06)
[2018-03-28] MEDS: FOLIC ACID 1 MG TAB PO (09:06)
[2018-03-28] MEDS: POLYETHYLENE GLYCOL 17 GM PACKET PO (09:07)
[2018-03-28] MEDS: predniSONE 20 MG TAB PO (09:07)
[2018-03-28] MEDS: METOPROLOL 50 MG TAB PO (09:09)
[2018-03-28] MEDS: ENOXAPARIN 100 MG/ML SYG SC (09:10)
[2018-03-28] MEDS: HYDROCODONE/APAP (5/325) TAB PO (12:06)
== END 2018-03-28 12:25 | disposition home or self-care (01) | DRG 253 ==
LOC: E/R 23:49 → 2NE 03-25 17:50 → PP2 03-22 01:09 → ICU 03-22 22:50
PROC: 061 Lower Veins, Bypass (ICD-10-PCS; principal; 2018-03-22 18:00)
PROC: 06BP4ZZ Excision of Right Saphenous Vein, Percutaneous Endoscopic Approach (ICD-10-PCS; 2018-03-22 18:00)
PROC: 06CN0ZZ Extirpation of Matter from Left Femoral Vein, Open Approach (ICD-10-PCS; 2018-03-22 18:00)
DX: I73.9 Peripheral vascular disease, unspecified (principal); I82.522 Chronic embolism and thrombosis of left iliac vein; D68.59 Other primary thrombophilia; I82.512 Chronic embolism and thrombosis of left femoral vein; K76.0 Fatty (change of) liver, not elsewhere classified; I10 Essential (primary) hypertension; E78.5 Hyperlipidemia, unspecified; E66.9 Obesity, unspecified; Z68.30 Body mass index [BMI] 30.0-30.9, adult; Z79.02 Long term (current) use of antithrombotics/antiplatelets; F17.210 Nicotine dependence, cigarettes, uncomplicated
CPT/HCPCS: 36415; 73718; 80053; 80069; 83690; 83735; 84100; 85025; 85610; 85730; 86850; 86900; 86901; 86920; 87081; 96374; 96375; 97110; 97116; 97163; 97530; 99285-25

== ENCOUNTER 2018-06-01 16:59 | Inpatient (IN) | payer OTHER ==
[2018-06-02 01:00] LABS: ADD MAN DIFF? NO
[2018-06-02 01:03] LABS: WHITE BLOOD COUNT 9.4 10^3/ul (4.8-10.8)
[2018-06-02 01:03] LABS: BASOPHIL # 0.1 10^3/ul (0.0-0.1); EOSINOPHILS # 0.2 10^3/ul (0.0-0.5); EOSINOPHILS % 1.9 % (0.0-7.0); HEMATOCRIT 43.2 % (42.0-52.0); LYMPHOCYTES # 0.6 10^3/ul (0.8-2.9); LYMPHOCYTES % 6.7 % (15.0-51.0); MEAN CORPUSCULAR HEMOGLOBIN 37.1 pg (29.0-33.0); MEAN CORPUSCULAR HGB CONC 34.7 g/dl (32.0-37.0); MEAN CORPUSCULAR VOLUME 106.9 fl (82.0-101.0); MEAN PLATELET VOLUME 9.8 fl (7.4-10.4); MONOCYTE # 0.8 10^3/ul (0.3-0.9); MONOCYTES % 8.2 % (0.0-11.0); NEUTROPHIL # 7.5 10^3/ul (1.6-7.5); NEUTROPHILS % 78.8 % (39.0-77.0); PLATELET COUNT 293 10^3/UL (140-415); RED BLOOD COUNT 4.04 10^6/ul (4.70-6.10); RED CELL DISTRIBUTION WIDTH 16.7 % (11.5-14.5)
[2018-06-02] MEDS: METOPROLOL 50 MG TAB PO ×3 (01:13→15:50)
[2018-06-02] MEDS: ONDANSETRON 4 MG INJ IV (01:13)
[2018-06-02] MEDS: morphine 4 MG/ML VIAL IV (01:14)
[2018-06-02] MEDS ORDERED: IBUPROFEN 800 MG TAB (01:21)
[2018-06-02 01:22] LABS: INR 0.87; PARTIAL THROMBOPLASTIN TIME 28.3 Sec (23.0-35.0); PROTIME 11.9 Sec (11.9-14.9); PT RATIO 0.9
[2018-06-02 01:24] LABS: ALANINE AMINOTRANSFERASE 182 IU/L (13-69); ALBUMIN/GLOBULIN RATIO 1.08; ALKALINE PHOSPHATASE 224 IU/L (42-121); ANION GAP 13 (5-13); ASPARTATE AMINO TRANSFERASE 178 IU/L (15-46); BILIRUBIN,INDIRECT 0.9 mg/dl (0-1.1); BILIRUBIN,TOTAL 0.9 mg/dl (0.2-1.3); BLOOD UREA NITROGEN 8 mg/dl (7-20); CALCIUM 8.9 mg/dl (8.4-10.2); CARBON DIOXIDE 27 mmol/L (21-31); CHLORIDE 96 mmol/L (97-110); CREATININE 0.66 mg/dl (0.61-1.24); Estimated GFR > 60 mL/min (>60); GLUCOSE 110 mg/dl (70-220); LIPASE 162 U/L (23-300); POTASSIUM 3.9 mmol/L (3.5-5.1); SODIUM 136 mmol/L (135-144); TOTAL PROTEIN 7.7 g/dl (6.1-8.1)
[2018-06-02 03:29] LABS: ADD UMIC NO; UR ASCORBIC ACID NEGATIVE (NEGATIVE); UR BILIRUBIN (Dip) NEGATIVE (NEGATIVE); UR BLOOD (Dip) NEGATIVE (NEGATIVE); UR CLARITY CLEAR (CLEAR); UR COLOR YELLOW (YELLOW); UR GLUCOSE (Dip) NEGATIVE (NEGATIVE); UR KETONES (Dip) NEGATIVE (NEGATIVE); UR LEUKOCYTE ESTERASE (Dip) NEGATIVE Leu/ul (NEGATIVE); UR NITRITE (Dip) NEGATIVE (NEGATIVE); UR SPECIFIC GRAVITY (Dip) 1.005 (1.003-1.030); UR TOTAL PROTEIN (Dip) NEGATIVE (NEGATIVE); UR UROBILINOGEN (Dip) NEGATIVE (NEGATIVE)
[2018-06-02] MEDS: DEXTROSE 5%-0.45% NACL 1,000 ML IV (06:31)
[2018-06-02] MEDS: morphine SULFATE/PF (2 MG/2 ML) SYG IV ×2 (06:56→11:15)
[2018-06-02] MEDS ORDERED: morphine SULFATE/PF (2 MG/2 ML) SYG IV (07:00)
[2018-06-02] MEDS: FOLIC ACID 1 MG TAB PO (09:00)
[2018-06-02] MEDS: CYANOCOBALAMIN 500 MCG TAB PO (09:00)
[2018-06-02] MEDS: ENOXAPARIN 100 MG/ML SYG SC ×2 (09:00→15:52)
[2018-06-02] MEDS ORDERED: ENOXAPARIN 80 MG/0.8 ML SYG SC (09:00)
[2018-06-02] MEDS: THIAMINE 100 MG TAB PO (09:00)
[2018-06-02] MEDS: CLOPIDOGREL 75 MG TAB PO ×2 (09:00→15:54)
[2018-06-02] MEDS ORDERED: predniSONE 10 MG TAB PO (09:00)
[2018-06-02] MEDS ORDERED: MIDAZOLAM 1 MG/ML 2 ML INJ (13:35)
[2018-06-02] MEDS ORDERED: FENTAnyl 50 MCG/ML VIAL (13:35)
[2018-06-02] MEDS ORDERED: HEPARIN 1000 UNITS/NS (A-LINE) 1,000 ML (13:35)
[2018-06-02] MEDS ORDERED: LIDOCAINE 1% (MDV) 20 ML INJ (13:36)
[2018-06-02] MEDS: HYDROCODONE/APAP (5/325) TAB PO ×2 (15:49→21:25)
[2018-06-02] MEDS: AMITRIPTYLINE 50 MG TAB PO (21:17)
[2018-06-03] MEDS: ENOXAPARIN 100 MG/ML SYG SC ×2 (00:52→08:27)
[2018-06-03] MEDS: METOPROLOL 50 MG TAB PO ×2 (01:05→08:24)
[2018-06-03] MEDS: HYDROCODONE/APAP (5/325) TAB PO (01:51)
[2018-06-03] MEDS: CLOPIDOGREL 75 MG TAB PO (08:23)
[2018-06-03] MEDS: THIAMINE 100 MG TAB PO (08:23)
[2018-06-03] MEDS: FOLIC ACID 1 MG TAB PO (08:23)
[2018-06-03] MEDS: CYANOCOBALAMIN 500 MCG TAB PO (08:23)
== END 2018-06-03 18:20 | disposition home or self-care (01) | DRG 949 ==
LOC: E/R 16:59 → MS1 06-02 00:42
PROC: 06PY3DZ Removal of Intraluminal Device from Lower Vein, Percutaneous Approach (ICD-10-PCS; principal; 2018-06-02 13:25)
DX: Z45.2 Encounter for adjustment and management of vascular access device (principal); D68.69 Other thrombophilia; Z86.718 Personal history of other venous thrombosis and embolism; Z79.01 Long term (current) use of anticoagulants; Z86.711 Personal history of pulmonary embolism; K42.9 Umbilical hernia without obstruction or gangrene; I10 Essential (primary) hypertension; G89.29 Other chronic pain; R74.0 Nonspecific elevation of levels of transaminase and lactic acid dehydrogenase [LDH]; I73.9 Peripheral vascular disease, unspecified; Z98.62 Peripheral vascular angioplasty status; E66.9 Obesity, unspecified; Z68.30 Body mass index [BMI] 30.0-30.9, adult
CPT/HCPCS: 36415; 80053; 81003; 83690; 85025; 85610; 85730; 99285-25

== ENCOUNTER 2018-07-27 22:13 | Inpatient (IN) | payer OTHER ==
[2018-07-28 02:24] LABS: ADD MAN DIFF? NO
[2018-07-28 02:26] LABS: WHITE BLOOD COUNT 4.2 10^3/ul (4.8-10.8)
[2018-07-28 02:26] LABS: BASOPHIL # 0.1 10^3/ul (0.0-0.1); BASOPHILS % 1.7 % (0.0-2.0); EOSINOPHILS # 0.2 10^3/ul (0.0-0.5); EOSINOPHILS % 5.2 % (0.0-7.0); HEMATOCRIT 47.3 % (42.0-52.0); HEMOGLOBIN 16.1 g/dl (14.0-18.0); LYMPHOCYTES # 0.7 10^3/ul (0.8-2.9); LYMPHOCYTES % 16.7 % (15.0-51.0); MEAN CORPUSCULAR HEMOGLOBIN 34.8 pg (29.0-33.0); MEAN CORPUSCULAR VOLUME 102.4 fl (82.0-101.0); MEAN PLATELET VOLUME 9.8 fl (7.4-10.4); MONOCYTE # 0.5 10^3/ul (0.3-0.9); MONOCYTES % 12.4 % (0.0-11.0); NEUTROPHIL # 2.6 10^3/ul (1.6-7.5); NEUTROPHILS % 62.8 % (39.0-77.0); PLATELET COUNT 246 10^3/UL (140-415); RED BLOOD COUNT 4.62 10^6/ul (4.70-6.10); RED CELL DISTRIBUTION WIDTH 16.7 % (11.5-14.5)
[2018-07-28] MEDS ORDERED: HYDROmorphONE 2 MG/ML SYG IV (02:35)
[2018-07-28] MEDS: ONDANSETRON 4 MG INJ IV (02:42)
[2018-07-28] MEDS: HYDROmorphONE 2 MG/ML SYG IV ×2 (02:43→04:53)
[2018-07-28 02:51] LABS: INR 0.95; PROTIME 12.8 Sec (11.9-14.9)
[2018-07-28 02:52] LABS: PARTIAL THROMBOPLASTIN TIME 29.2 Sec (23.0-35.0)
[2018-07-28 02:58] LABS: ALANINE AMINOTRANSFERASE 151 IU/L (13-69); ALBUMIN 4.3 g/dl (3.3-4.9); ALBUMIN/GLOBULIN RATIO 1.19; ALKALINE PHOSPHATASE 236 IU/L (42-121); ANION GAP 12 (5-13); ASPARTATE AMINO TRANSFERASE 286 IU/L (15-46); BILIRUBIN,INDIRECT 0.9 mg/dl (0-1.1); BILIRUBIN,TOTAL 0.9 mg/dl (0.2-1.3); BLOOD UREA NITROGEN 5 mg/dl (7-20); CARBON DIOXIDE 26 mmol/L (21-31); CHLORIDE 103 mmol/L (97-110); CREATININE 0.84 mg/dl (0.61-1.24); Estimated GFR > 60 mL/min (>60); GLUCOSE 93 mg/dl (70-220); POTASSIUM 3.6 mmol/L (3.5-5.1); SODIUM 141 mmol/L (135-144); TOTAL PROTEIN 7.9 g/dl (6.1-8.1)
[2018-07-28 03:10] LABS: B-TYPE NATRIURETIC PEPTIDE 25 PG/ML (0-125); TROPONIN-I < 0.012 ng/ml (0.000-0.120)
[2018-07-28] MEDS ORDERED: HYDROmorphONE 0.5 MG/0.5 ML SYG IV (04:36)
[2018-07-28 08:05] LABS: CREATINE KINASE 98 IU/L (23-200)
[2018-07-28] MEDS: HYDROCODONE/APAP (5/325) TAB PO ×4 (08:12→23:50)
[2018-07-28] MEDS: THIAMINE 100 MG TAB PO (08:12)
[2018-07-28] MEDS: CLOPIDOGREL 75 MG TAB PO (08:12)
[2018-07-28] MEDS: FOLIC ACID 1 MG TAB PO (08:13)
[2018-07-28] MEDS: CYANOCOBALAMIN 500 MCG TAB PO (08:13)
[2018-07-28] MEDS: METOPROLOL 50 MG TAB PO ×2 (08:14→20:43)
[2018-07-28 08:16] LABS: CK INDEX 0.8; CK-MB 0.78 ng/ml (0.0-2.4); TROPONIN-I < 0.012 ng/ml (0.000-0.120)
[2018-07-28] MEDS: FAMOTIDINE 20 MG TAB PO ×2 (09:05→20:42)
[2018-07-28] MEDS: ENOXAPARIN 100 MG/ML SYG SC ×2 (09:06→20:45)
[2018-07-28 10:18] LABS: D-DIMER 259.32 ng/ml (<460)
[2018-07-28] MEDS: HYDROmorphONE 1 MG/ML SYG IV ×3 (11:43→20:43)
[2018-07-28 14:15] LABS: CREATINE KINASE 93 IU/L (23-200)
[2018-07-28 14:25] LABS: CK INDEX 0.8; CK-MB 0.75 ng/ml (0.0-2.4); TROPONIN-I < 0.012 ng/ml (0.000-0.120)
[2018-07-28] MEDS: AMLODIPINE 10 MG TAB PO (16:24)
[2018-07-28] MEDS: AMITRIPTYLINE 50 MG TAB PO (20:42)
[2018-07-29] MEDS: HYDROmorphONE 1 MG/ML SYG IV ×3 (01:47→20:07)
[2018-07-29] MEDS: HYDROCODONE/APAP (5/325) TAB PO ×4 (05:12→23:10)
[2018-07-29 05:28] LABS: ADD MAN DIFF? NO
[2018-07-29 05:33] LABS: BASOPHIL # 0.1 10^3/ul (0.0-0.1); BASOPHILS % 1.3 % (0.0-2.0); EOSINOPHILS # 0.3 10^3/ul (0.0-0.5); EOSINOPHILS % 6.3 % (0.0-7.0); HEMOGLOBIN 15.1 g/dl (14.0-18.0); LYMPHOCYTES # 0.7 10^3/ul (0.8-2.9); LYMPHOCYTES % 13.8 % (15.0-51.0); MEAN CORPUSCULAR HEMOGLOBIN 35.4 pg (29.0-33.0); MEAN CORPUSCULAR HGB CONC 34.3 g/dl (32.0-37.0); MEAN CORPUSCULAR VOLUME 103.3 fl (82.0-101.0); MEAN PLATELET VOLUME 9.9 fl (7.4-10.4); MONOCYTE # 0.5 10^3/ul (0.3-0.9); MONOCYTES % 10.6 % (0.0-11.0); NEUTROPHIL # 3.2 10^3/ul (1.6-7.5); NEUTROPHILS % 66.7 % (39.0-77.0); PLATELET COUNT 220 10^3/UL (140-415); RED BLOOD COUNT 4.26 10^6/ul (4.70-6.10); RED CELL DISTRIBUTION WIDTH 16.1 % (11.5-14.5)
[2018-07-29 05:33] LABS: WHITE BLOOD COUNT 4.8 10^3/ul (4.8-10.8)
[2018-07-29 05:53] LABS: ANION GAP 5 (5-13); BLOOD UREA NITROGEN 6 mg/dl (7-20); CALCIUM 8.7 mg/dl (8.4-10.2); CARBON DIOXIDE 30 mmol/L (21-31); CHLORIDE 100 mmol/L (97-110); CREATININE 0.78 mg/dl (0.61-1.24); Estimated GFR > 60 mL/min (>60); GLUCOSE 103 mg/dl (70-220); MAGNESIUM 1.8 mg/dl (1.7-2.5); PHOSPHORUS 3.7 mg/dl (2.5-4.9); POTASSIUM 3.7 mmol/L (3.5-5.1); SODIUM 135 mmol/L (135-144)
[2018-07-29] MEDS: AMLODIPINE 10 MG TAB PO ×2 (08:18→13:49)
[2018-07-29] MEDS: THIAMINE 100 MG TAB PO ×2 (08:18→13:50)
[2018-07-29] MEDS: CYANOCOBALAMIN 500 MCG TAB PO ×2 (08:18→13:50)
[2018-07-29] MEDS: CLOPIDOGREL 75 MG TAB PO ×2 (08:18→13:48)
[2018-07-29] MEDS: FOLIC ACID 1 MG TAB PO ×2 (08:18→13:50)
[2018-07-29] MEDS: FAMOTIDINE 20 MG TAB PO ×3 (08:18→21:24)
[2018-07-29] MEDS: METOPROLOL 50 MG TAB PO ×3 (08:18→21:24)
[2018-07-29] MEDS: ENOXAPARIN 100 MG/ML SYG SC ×3 (08:18→21:31)
[2018-07-29] MEDS ORDERED: IODIXANOL LOCM 100 ML BTL (12:46)
[2018-07-29] MEDS: AMITRIPTYLINE 50 MG TAB PO (21:24)
[2018-07-30] MEDS: HYDROmorphONE 1 MG/ML SYG IV (02:40)
[2018-07-30] MEDS: CLOPIDOGREL 75 MG TAB PO (08:10)
[2018-07-30] MEDS: CYANOCOBALAMIN 500 MCG TAB PO (08:11)
[2018-07-30] MEDS: METOPROLOL 50 MG TAB PO (08:11)
[2018-07-30] MEDS: THIAMINE 100 MG TAB PO (08:11)
[2018-07-30] MEDS: AMLODIPINE 10 MG TAB PO (08:12)
[2018-07-30] MEDS: HYDROCODONE/APAP (5/325) TAB PO (08:12)
[2018-07-30] MEDS: FOLIC ACID 1 MG TAB PO (08:12)
[2018-07-30] MEDS: FAMOTIDINE 20 MG TAB PO (08:12)
[2018-07-30] MEDS: ENOXAPARIN 100 MG/ML SYG SC (08:15)
== END 2018-07-30 12:00 | disposition home or self-care (01) | DRG 300 ==
LOC: E/R 22:13 → PP2 07-28 04:35
PROC: B51CYZZ Fluoroscopy of Left Lower Extremity Veins using Other Contrast (ICD-10-PCS; principal; 2018-07-29 12:43)
DX: I82.502 Chronic embolism and thrombosis of unspecified deep veins of left lower extremity (principal); D68.59 Other primary thrombophilia; I87.002 Postthrombotic syndrome without complications of left lower extremity; G89.4 Chronic pain syndrome; M79.605 Pain in left leg; K76.0 Fatty (change of) liver, not elsewhere classified; K42.9 Umbilical hernia without obstruction or gangrene; Z86.711 Personal history of pulmonary embolism; Z95.828 Presence of other vascular implants and grafts; Z79.01 Long term (current) use of anticoagulants
CPT/HCPCS: 36415; 71045; 75820; 80048; 80053; 82550; 82553; 83735; 83880; 84100; 84484; 85025; 85378; 85610; 85730; 90686; 93005; 93970; 96374; 96375; 99285-25